=== PATIENT | male | born 1975 | race Caucasian/White ===

== ENCOUNTER 2022-02-08 17:50 | Emergency (ER) | payer OTHER ==
[~2022-02-08] VITALS: Ht 180.3 cm; Wt 65.8 kg
[2022-02-08] MEDS ORDERED: HYDROCODONE/APAP 5MG-325MG TAB PO ONE (18:15)
[2022-02-08] MEDS ORDERED: IBUPROFEN 200 MG TAB PO ONE (18:15)
[2022-02-08] MEDS ORDERED: ONDANSETRON HCL 4 MG ORAL DISINTEGRATING TAB PO ONE (18:15)
[2022-02-08] MEDS ORDERED: IBUPROFEN 600 MG TAB ONE (18:23)
[2022-02-08] MEDS ORDERED: IBUPROFEN200 MG PO (18:24)
[2022-02-08] MEDS ORDERED: ACETAMINOPHEN-1 EAC4 PO (18:24)
== END 2022-02-08 18:54 | disposition home or self-care (01) ==
LOC: FSED 18:05
DX: S83.8X2A Sprain of other specified parts of left knee, initial encounter (principal); M25.561 Pain in right knee; X50.1XXA Overexertion from prolonged static or awkward postures, initial encounter; Y99.0 Civilian activity done for income or pay; J44.9 Chronic obstructive pulmonary disease, unspecified; M54.9 Dorsalgia, unspecified; G89.29 Other chronic pain; F17.210 Nicotine dependence, cigarettes, uncomplicated
CPT/HCPCS: 73560 ×2; 99283; Q0162

== ENCOUNTER 2022-04-22 19:00 | Emergency (ER) | payer OTHER ==
[~2022-04-22] VITALS: Ht 180.3 cm; Wt 62.6 kg
[~2022-04-22 19:00] MED LIST: ACETAMINOPHEN-1 EAC4 PO; IBUPROFEN200 MG PO
[2022-04-22] MEDS ORDERED: SODIUM CHLORIDE 0.9% 1000ML 1,000 ML IV SCH (20:00)
[2022-04-22] MEDS ORDERED: ONDANSETRON HCL INJ 2MG/ML 2ML 2 MG/ML VIAL IV STA (20:00)
[2022-04-22] MEDS ORDERED: ONDANSETRON HCL INJ 2MG/ML 2ML 2 MG/ML VIAL ONE (20:13)
[2022-04-22] MEDS ORDERED: PREVACID30 MG PO ×2 (21:49→22:05)
[2022-04-22] MEDS ORDERED: METRONIDAZOLE500 MG PO ×2 (21:49→22:05)
[2022-04-22] MEDS ORDERED: LOMOTIL TABLET1 EACH PO ×3 (21:49→22:07)
[2022-04-22] MEDS ORDERED: CIPRO500 MG PO ×2 (21:49→22:05)
== END 2022-04-22 22:25 | disposition home or self-care (01) ==
LOC: FSED 19:15
DX: R10.13 Epigastric pain (principal); R19.7 Diarrhea, unspecified; J44.9 Chronic obstructive pulmonary disease, unspecified; M54.9 Dorsalgia, unspecified; G89.29 Other chronic pain; Z85.89 Personal history of malignant neoplasm of other organs and systems; F17.210 Nicotine dependence, cigarettes, uncomplicated
CPT/HCPCS: 74176; 80048; 80076; 81003; 85025; 99284; C9113; J2405; J7030